=== PATIENT | male | born 1960 | race Hispanic/Latino ===

== ENCOUNTER 2021-09-30 10:28 | Inpatient (IN) | payer OTHER ==
[~2021-09-30] VITALS: Ht 157.5 cm; Wt 69.4 kg
[2021-09-30] MEDS ORDERED: ONDANSETRON HCL INJ 2MG/ML 2ML 2 MG/ML VIAL IV STA (10:36)
[2021-09-30] MEDS ORDERED: SODIUM CHLORIDE 0.9% 1000ML 1,000 ML IV ONE (10:45)
[2021-09-30 10:50] LABS: BASOPHILS # (AUTO) 0.1 (0.0-0.1); BASOPHILS % 0.5 % (0.0-1.0); EOSINOPHILS # (AUTO) 0.1 (0.0-0.4); EOSINOPHILS % 0.5 % (0.0-6.0); HEMATOCRIT 39.9 % (38.2-49.6); HEMOGLOBIN 13.3 g/dL (14.0-18.0); LYMPHOCYTES % 19.4 % (18.0-39.1); MEAN CORPUSCULAR HEMOGLOBIN 30.6 pg (28-32); MEAN CORPUSCULAR HGB CONC 33.3 g/dL (31-35); MEAN CORPUSCULAR VOLUME 91.7 fL (81-99); MONOCYTES # (AUTO) 1.3 (0.2-0.8); MONOCYTES % 12.5 % (4.4-11.3); NEUTROPHILS # (AUTO) 6.4 (2.1-6.9); NEUTROPHILS % 60.6 % (38.7-80.0); PLATELET COUNT 384 x10e3/uL (140-360); RED BLOOD COUNT 4.35 x10e6/uL (4.3-5.7); RED CELL DISTRIBUTION WIDTH 13.9 % (11.7-14.4)
[2021-09-30 11:04] LABS: CLARITY,URINE CLEAR (CLEAR); COLOR,URINE YELLOW (YELLOW)
[2021-09-30] MEDS ORDERED: SODIUM CHLORIDE 0.9% 1000ML 1,000 ML ONE (11:04)
[2021-09-30 11:05] LABS: KETONES,URINE NEGATIVE (NEGATIVE); LEUKOCYTE ESTERASE ,URINE NEGATIVE (NEGATIVE); NITRITE,URINE NEGATIVE (NEGATIVE); PROTEIN,URINE DIPSTICK 1+ (NEGATIVE); URINE UROBILINOGEN 0.2 mg/dL (0.2 - 1)
[2021-09-30 11:29] LABS: BACTERIA,URINE MODERATE /HPF; EPITHELIAL CELLS,URINE FEW /LPF; WBC,URINE (MAN) 0-5 /HPF (0-5)
[2021-09-30 12:04] LABS: ALBUMIN 3.8 g/dL (3.5-5.0); ANION GAP 27.7 mmol/L (8-16); CALCIUM 8.1 mg/dL (8.4-10.2); CREATININE, SERUM 10.5 mg/dL (0.72-1.25); POTASSIUM 4.7 mmol/L (3.5-5.1)
[2021-09-30] MEDS ORDERED: ONDANSETRON HCL INJ 2MG/ML 2ML 2 MG/ML VIAL IV PRN (12:30)
[2021-09-30] MEDS: SODIUM CHLORIDE 0.9% 1000ML 1,000 ML IV SCH ×2 (12:43→18:57)
[2021-09-30 12:59] LABS: BAND NEUTROPHILS % (MANUAL) 1 %; LYMPHOCYTES % (MANUAL) 21 % (19-48); METAMYELOCYTES % (MANUAL) 1 % (0-0); MONOCYTES % (MANUAL) 19 % (3.4-9.0); MYELOCYTES % (MANUAL) 1 % (0-0); NEUTROPHILS % (MANUAL) 57 % (40-74); PLATELET ESTIMATE ADEQUATE
[2021-09-30 13:00] LABS: PLATELET MORPHOLOGY COMMENT NORMAL; RBC MORPHOLOGY COMMENT NORMAL
[2021-09-30 13:03] LABS: INR 1.02; PROTHROMBIN TIME 14.3 seconds (11.9-14.5)
[2021-09-30] MEDS ORDERED: SODIUM CHLORIDE 0.9% 250ML 250 ML ONE (13:20)
[2021-09-30] MEDS ORDERED: LIDOCAINE HCL 1% LOCAL INJ 20 ML VIAL ONE (13:20)
[2021-09-30] MEDS ORDERED: HEPARIN SOD (PORCINE) 1000 UNIT/ML SDV ONE (14:28)
[2021-09-30] MEDS ORDERED: ACETAMINOPHEN 325 MG TAB PO PRN (14:30)
[2021-09-30] MEDS ORDERED: HYDRALAZINE HCL 20 MG/ML VIAL IV PRN (14:30)
[2021-09-30] MEDS ORDERED: GUAIFENESIN 600MG/DEXTROMETHORPHAN 30MG TABSR PO PRN (15:00)
[2021-09-30] MEDS ORDERED: DEXTROSE 5%/0.9% SOD CHL 1,000 ML IV ONE (18:30)
[2021-09-30] MEDS: METRONIDAZOLE 500MG/NS 100ML 100 ML IV SCH (18:33)
[2021-09-30] MEDS ORDERED: SODIUM BICARBONATE 8.4% 150 ML in DEXTROSE 5% 1,000 ML IV ONE (19:15)
[2021-09-30] MEDS: ATORVASTATIN 20 MG TAB PO SCH (22:03)
[2021-09-30 23:20] VITALS: BP 115/64
[2021-09-30] MEDS ORDERED: ALDACTONE25 MG PO (23:29)
[2021-09-30] MEDS ORDERED: LASIX20 MG PO (23:29)
[2021-09-30] MEDS ORDERED: LIPITOR20 MG PO (23:29)
[2021-09-30] MEDS ORDERED: COREG6.25 MG PO (23:29)
[2021-09-30] MEDS ORDERED: LISINOPRIL20 MG PO (23:29)
[2021-10-01] VITALS (25 sets, daily range): BP systolic 97–151; BP diastolic 55–83
[2021-10-01] MEDS: METRONIDAZOLE 500MG/NS 100ML 100 ML IV SCH ×3 (02:03→17:13)
[2021-10-01] MEDS: SODIUM CHLORIDE 0.9% 1000ML 1,000 ML IV SCH (02:03)
[2021-10-01 06:43] LABS: BASOPHILS % 0.1 % (0.0-1.0); EOSINOPHILS % 0.3 % (0.0-6.0); HEMATOCRIT 31.6 % (38.2-49.6); HEMOGLOBIN 10.6 g/dL (14.0-18.0); LYMPHOCYTES # (AUTO) 1.2 (1.0-3.2); LYMPHOCYTES % 16.8 % (18.0-39.1); MEAN CORPUSCULAR HEMOGLOBIN 30.6 pg (28-32); MEAN CORPUSCULAR HGB CONC 33.5 g/dL (31-35); MEAN CORPUSCULAR VOLUME 91.3 fL (81-99); MONOCYTES # (AUTO) 1.1 (0.2-0.8); MONOCYTES % 15.2 % (4.4-11.3); NEUTROPHILS # (AUTO) 4.4 (2.1-6.9); NEUTROPHILS % 63.6 % (38.7-80.0); PLATELET COUNT 281 x10e3/uL (140-360); RED BLOOD COUNT 3.46 x10e6/uL (4.3-5.7); RED CELL DISTRIBUTION WIDTH 14.2 % (11.7-14.4)
[2021-10-01 07:15] LABS: ANION GAP 14.1 mmol/L (8-16); CALCIUM 7.3 mg/dL (8.4-10.2); CREATININE, SERUM 2.52 mg/dL (0.72-1.25); POTASSIUM 4.1 mmol/L (3.5-5.1)
[2021-10-01] MEDS: HEPARIN SOD (PORCINE) 5,000 UNIT/ML VIAL SC SCH ×2 (09:00→21:06)
[2021-10-01] MEDS: DEXTROSE 5%/0.225% SOD CHL 1,000 ML IV SCH ×2 (09:16→17:08)
[2021-10-01] MEDS: ATORVASTATIN 20 MG TAB PO SCH (21:06)
[2021-10-02] VITALS: BP 156/81
[2021-10-02] MEDS: DEXTROSE 5%/0.225% SOD CHL 1,000 ML IV SCH ×2 (01:45→09:51)
[2021-10-02] MEDS: METRONIDAZOLE 500MG/NS 100ML 100 ML IV SCH ×2 (01:45→09:50)
[2021-10-02 04:00] VITALS: BP 132/72
[2021-10-02 06:34] LABS: ALBUMIN 2.7 g/dL (3.5-5.0); CALCIUM 7.6 mg/dL (8.4-10.2); CREATININE, SERUM 0.93 mg/dL (0.72-1.25)
[2021-10-02 08:00] VITALS: BP 127/74
[2021-10-02 08:12] VITALS: BP 127/74
[2021-10-02] MEDS: HEPARIN SOD (PORCINE) 5,000 UNIT/ML VIAL SC SCH (08:47)
[2021-10-02] MEDS ORDERED: ONDANSETRON HCL 4 MG ORAL DISINTEGRATING TAB PO PRN (09:30)
[2021-10-02 11:51] VITALS: BP 170/71
== END 2021-10-02 14:00 | disposition home or self-care (01) | DRG 682 ==
LOC: ER 10:31 → ERHOLD 12:32 → ICU 23:18 → MED/SURG2 10-01 22:36
PROVIDERS: ADMIT Internal Medicine; ATTEND Internal Medicine
PROC: 02HV33Z Insertion of Infusion Device into Superior Vena Cava, Percutaneous Approach (ICD-10-PCS; principal; 2021-09-30)
DX: N17.9 Acute kidney failure, unspecified (principal); U07.1 COVID-19; E86.0 Dehydration; E78.00 Pure hypercholesterolemia, unspecified; N17.0 Acute kidney failure with tubular necrosis; I10 Essential (primary) hypertension; I25.10 Atherosclerotic heart disease of native coronary artery without angina pectoris; Z95.1 Presence of aortocoronary bypass graft; R19.7 Diarrhea, unspecified
CPT/HCPCS: 0223U; 36415; 36556; 71045; 74176; 74470; 76770; 76937; 80048; 80053; 81001; 83690; 85025; 85610; 85730; 87324; 87449; 87493; 94799; 96361; 99285; C1752; C1769; J0696; J1644; J2001; J2405; J7030; J7050; J7070

== ENCOUNTER 2022-06-13 18:24 | Emergency (ER) | payer BC ==
[~2022-06-13] VITALS: Ht 157.5 cm; Wt 73.9 kg
[~2022-06-13 18:24] MED LIST: ALDACTONE25 MG PO; COREG6.25 MG PO; LASIX20 MG PO; LIPITOR20 MG PO; LISINOPRIL20 MG PO
[2022-06-13 19:18] LABS: BASOPHILS % 0.2 % (0.0-1.0); EOSINOPHILS # (AUTO) 0.1 (0.0-0.4); EOSINOPHILS % 0.5 % (0.0-6.0); HEMATOCRIT 40.3 % (38.2-49.6); LYMPHOCYTES # (AUTO) 1.6 (1.0-3.2); LYMPHOCYTES % 12.3 % (18.0-39.1); MEAN CORPUSCULAR HEMOGLOBIN 30.2 pg (28-32); MEAN CORPUSCULAR HGB CONC 34.7 g/dL (31-35); MONOCYTES # (AUTO) 0.9 (0.2-0.8); MONOCYTES % 6.9 % (4.4-11.3); NEUTROPHILS # (AUTO) 10.5 (2.1-6.9); NEUTROPHILS % 79.5 % (38.7-80.0); PLATELET COUNT 363 x10e3/uL (140-360); RED BLOOD COUNT 4.63 x10e6/uL (4.3-5.7); RED CELL DISTRIBUTION WIDTH 12.4 % (11.7-14.4)
[2022-06-13 19:35] LABS: ANION GAP 14.8 mmol/L (8-16); CREATININE, SERUM 0.97 mg/dL (0.72-1.25); POTASSIUM 3.8 mmol/L (3.5-5.1)
[2022-06-13 19:36] LABS: ALBUMIN 4.1 g/dL (3.5-5.0); CALCIUM 9.4 mg/dL (8.4-10.2)
[2022-06-13] MEDS ORDERED: ALBUTEROL2.5 MG/0.5 PO (20:26)
[2022-06-13] MEDS ORDERED: BENZONATATE200 MG PO (20:26)
[2022-06-13] MEDS ORDERED: DOXYCYCLINE HY100 MG PO (20:26)
== END 2022-06-13 20:31 | disposition home or self-care (01) ==
LOC: ER 18:30
DX: R05.9 Cough, unspecified (principal); J06.9 Acute upper respiratory infection, unspecified; I10 Essential (primary) hypertension; E78.5 Hyperlipidemia, unspecified; I25.10 Atherosclerotic heart disease of native coronary artery without angina pectoris; Z20.822 Contact with and (suspected) exposure to COVID-19; R94.31 Abnormal electrocardiogram [ECG] [EKG]; Z95.810 Presence of automatic (implantable) cardiac defibrillator; Z95.1 Presence of aortocoronary bypass graft
CPT/HCPCS: 0223U; 36415; 70450; 71045; 80053; 83880; 84484; 85025; 93005; 99284